=== PATIENT | male | born 1965 | race Two or more races ===

== ENCOUNTER 2024-05-12 19:02 | Emergency (ER) | payer SELFPAY ==
[~2024-05-12] VITALS: Ht 175.3 cm; Wt 71.0 kg
[2024-05-12 19:05] VITALS: BP 139/73; PULSE 72; RESP 18; TEMP 98.7; O2SAT 98
[2024-05-12] MEDS ORDERED: SODIUM CHLORIDE 0.9% 1,000 ML IV ONE (19:30)
== END 2024-05-12 19:50 | disposition left against medical advice (07) ==
LOC: ER 19:02
DX: R42 Dizziness and giddiness (principal); E11.22 Type 2 diabetes mellitus with diabetic chronic kidney disease; I12.0 Hypertensive chronic kidney disease with stage 5 chronic kidney disease or end stage renal disease; N18.6 End stage renal disease; Z99.2 Dependence on renal dialysis
CPT/HCPCS: 99283; 93005; J7030